=== PATIENT | male | born 1945 | race Caucasian/White ===

== ENCOUNTER 2024-07-02 07:45 | Outpatient (AMB) | payer MEDICARE, OTHER, SELFPAY ==
--- OUTSIDE RECORDS SUMMARY | 2024-07-02 07:49 | XMS_ITS | Clinical Summary ---
Author Organization [facility] ity Address [address] [place] [address] Care Team Providers Care Securities Dealer Name Role Phone Gail Albright NP Primary Care Provider [phone] Allergies No known active allergies Medications aspirin 81 mg EC tablet Take 1 Tablet by mouth daily. Active metoprolol succinate (TOPROL-XL) 100 mg 24 hr tablet TAKE 1 TABLET BY MOUTH EVERY DAY 90 tablet 1 5 Active rosuvastatin (CRESTOR) 40 mg tablet TAKE 1 TABLET BY MOUTH EVERY DAY 90 tablet 1 5 Active amLODIPine (NORVASC) 10 mg tablet TAKE 1 TABLET BY MOUTH EVERY DAY 90 tablet 1 5 Active valsartan-hydro CHLOROthiazide (DIOVAN-HCT) 160-25 mg per tablet TAKE 1 TABLET BY MOUTH EVERY DAY 90 tablet 1 5 Active valsartan-hydro CHLOROthiazide (DIOVAN-HCT) 160-25 mg per tablet Take 1 tablet by mouth 1 (one) time each day. 4 06/28/19 25 Discontinued Active Problems Problem Noted Date Diagnosed Date Prediabetes 02/01/2024 Impaired fasting glucose 01/18/2024 CAD (coronary artery disease) 07/17/2022 CKD (chronic kidney disease) 07/17/2022 GERD (gastroesophageal reflux disease) 3 PAD (peripheral artery disease) 07/17/2022 Spinal stenosis 07/17/2022 Right bundle branch block 07/17/2022 Essential hypertension, benign 04/25/2006 Immunizations Name Administration Dates Next Due Influenza trivalent, 0.5mL ( Fluad) 65yo and older 02/01/2024,01/26/2023,03/06/2022 Pneumococcal conjugate 20 va lent (Prevnar 20, PCV 20) 2mo and older 03/06/2022 Surgical History Surgery Date Site/Laterality Comments OTHER SURGICAL HISTORY PROCEDURE: MT SPINE DEVICE IMPLANT SURGERY CAROTID ENDARTERECTOMY PROCEDURE: HISTORICAL CAROTID ENDART Medical History Medical History Date Comments UPJ obstruction, congenital DX:U PJ obstruction, congenital; COMMENT: ureteres cleaned and reattached History of skin cancer DX:Histor y of skin cancer; COMMENT: r side near belly precancerous Hydronephrosis DX:Hydronephrosi s Family History Medical History Relation Name Comments Dementia Brother x2 1 living brother Other: Other Brother x2 1 broth er with Covid kidney failure, brother [id number] Obesity Daughter Colon cancer Father Diabetes Father Hyperlipidemia Mother Hypertension Mother Diabetes Sister x2 No Known Problems Son Relation Name Status Comments Brother x2 1 Daughter Alive Father Alive Mother Alive Sister x2 Alive Son Alive Social History Tobacco Use Types Packs/Day Years Used Date Smoking Tobacco: Never Smokeless Tobacco: Never Alcohol Use Standard Drinks/Week Comments Yes 1 (1 standard drink = 0.6 oz pur e alcohol) Sex and Gender Information Value Date Recorded Sex Assigned at Not on file Legal Sex Male 1:37 PM EST Gender Identity Not on file Sexual Orientation Not on file Obstetrics History Last Filed Vital Signs Vital Sign Reading Time Taken Comments Blood Pressure 109/70 08/01/2023 10:41 AM EDT A Pulse 76 08/01/2023 10:41 AM EDT Temperature - - Respiratory Rate - - Oxygen Saturation - - Inhaled Oxygen Concentration - - Weight 101 kg (222 lb 12.8 oz) 08/01/2023 10:41 AM EDT Height 177.8 cm (5' 10 ) 08/01/2023 10:41 AM EDT Body Mass Index 31.97 08/01/2023 10:41 AM EDT Plan of Treatment Upcoming Encounters Date Type Department Care Team (Late st Contact Info) Description 08/01/2024 3:00 PM EDT [facility] [address] [place] [address] Gail Albright NP [address] [place] [address] Health Maintenance Due Date Last Done Comments DTaP,Tdap,and Td Vaccines (1 - Tdap) 1964 Zoster Vaccines (1 of 2) 1995 RSV Immunization Patients 60 + Years Old (1 - 1-dose 75+ series) 2020 Depression Screening 02/28/2022 Falls Risk Assessment 02/28/2022 Hepatitis C Screening 02/28/2022 Social Influencers of Health Screening 02/28/2022 COVID-19 Vaccine (4 - 2023-2 5 season) 2023 01/24/2021, 06/12/2020, 2020 Hypertension/CHF/CAD Annual BMP Blood Test 01/21/2025 01/22/2024, 01/22/2024, 08/01/2023 Cholesterol Screening (Lipid Panel) 01/21/2029 01/22/2024, 01/22/2024, 08/01/2023 Pneumococcal Vaccine: 50+ Years Completed 03/06/2022 Influenza Vaccine Completed 02/01/2024, 01/26/2023, 03/06/2022 HIB Vaccines Aged Out No longer eligi ble based on patient's age to complete this topic HPV Vaccines Aged Out No longer eligi ble based on patient's age to complete this topic Hepatitis A Vaccines Aged Out No long er eligible based on patient's age to complete this topic Hepatitis B Vaccines Aged Out No long er eligible based on patient's age to complete this topic IPV Vaccines Aged Out No longer eligi ble based on patient's age to complete this topic MMR Vaccines Aged Out No longer eligi ble based on patient's age to complete this topic Meningococcal ACWY Vaccine Aged Out N o longer eligible based on patient's age to complete this topic Meningococcal B Vacine Aged Out No lo nger eligible based on patient's age to complete this topic RSV Immunization Patients Under 20 months Aged Out No longer eligible b ased on patient's age to complete this topic Varicella Vaccines Aged Out No longer eligible based on patient's age to complete this topic Procedures Procedure Name Priority Date/Time Associated Diagnosis Comments HM ANNUAL BMP BLOOD TEST Routine 01/22/2024 LIPID PANEL Routine 01/22/2024 from Last 3 Months or Most Recently Relevant to Health Maintenance Results * Annual BMP Blood Test (01/22/2024) Pathologist [facility] Annual BMP Blood Test ABSTRACTED Historical Provider HEALTH MAINTENANCE Final Result * (ABNORMAL) Lipid panel (01/22/2024) Pathologist [facility] LDL/HDL Ratio 3 0 - 4 Triglycerides 218(A) 0 - 150 mg/dL Cholesterol 135 0 - 200 mg/dL HDL 45 >=40 mg/dL LDL Cholesterol 47 0 - 100 mg/dL Blood Venous blood specimen / Unknown Historical Provider LAB BLOOD ORDERABLES Nuris l Result from Last 3 Months or Most Recently Relevant to Health Maintenance Care Teams Securities Dealer Relationship Specialty Start Date End Date Gail Albright NP [address] [place] [address] [place] [id number] PCP - General 04/21/22
--- NOTE | 2024-07-02 07:53 | MHC.OFFVIS ---
Intake Visit Reasons: Blister~ Rt index finger Intake Note: Patient referred by Bobby Mares PA-C @ [facility] for [facility] on Lt index finger. Present for over 1yr. Patient c/o: reports cyst was drained by stack supervisor 1yr ago but it grew back. Painful when pressed on. Fishing Tool Operator Required: No Accompanied by: Spouse Sherron Allergies No Known Allergies Allergy (Verified 07/02/24 07:55) HPI Comments Details: Patient presents with a family member. He presents here with a 1 year history of a cystic type lesion involving the tip of his left index finger. This was initially seen by Dermatology were this was treated with shave biopsy and ointment placement but the process recurred. Patient was states that cyst-like fluid was retrieved after the procedure. Patient was now presents here for further evaluation. He has never abscess lesions in the past. Denies any trauma to the area. Patient was told by the stack supervisor at this process extends into the joint of the DIP index finger. Chart was reviewed and patient evaluated Physical Exam Extrem Other: Patient was a roughly 1.5 x 1 cm cystic lesion involving the lateral dorsal aspect of his left index finger and proximity to the distal IP joint. Digit and hand are grossly neurovascularly intact. 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 Patient understands. Arrangements were made for this. Patient will otherwise follow-up with me p.r.n.. 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
== END 2024-07-02 08:08 | disposition home or self-care (01) ==
LOC: HO.HGS 07:46
PROVIDERS: PCP Internal Medicine; Visit Provider Surgery
DX: M67.442 Ganglion, left hand (principal)
CPT/HCPCS: 99204

== ENCOUNTER → 2024-07-02 07:45 | Outpatient (BNVA) | payer MEDICARE, OTHER, SELFPAY | PROVIDERS: PCP Internal Medicine; Visit Provider Surgery | DX: Z01.818 Encounter for other preprocedural examination (principal); M67.442 Ganglion, left hand | CPT/HCPCS: 99202 ==

== ENCOUNTER 2024-07-02 08:24 | Outpatient (AMB) | payer MEDICARE, OTHER, SELFPAY ==
--- NOTE | 2024-07-02 08:26 | MHC.OFFVIS ---
Intake Visit Reasons: TECHNICAL SERVICES LIBRARIAN-RT index finger mass Intake Note: Judd 79 yr old - hand dominant male presents today for a new patient evaluation for his left index finger. States he has a cyst on his index and has been presents for over 1 yr. Reports cyst was drained by quality control assessor 1yr ago but it grew back. States it is painful when pressed on. Patient would like to discuss aspiration vs surgical intervention. Allergies No Known Allergies Allergy (Verified 07/02/24 08:35) HPI HPI TECHNICAL SERVICES LIBRARIAN-RT index finger mass: Details: Judd is a 79 year old right hand dominant man, here with his , for a left index finger cyst. He complains of a mass on the dorsal aspect of his index finger, near his DIP joint. He says this has been present for over a year. He says this was shaved a year ago by his quality control assessor, but has since returned. He has difficulty hearing, and forgot his hearing aides today. He was active in participating in his appointment. Review of Systems Const All systems reviewed & are unremarkable except as noted in HPI and below Physical Exam Const General: cooperative, healthy appearing and no acute distress Orientation/consciousness: patient oriented x3 HEENT Head: Yes normocephalic and Yes atraumatic Eyes EOM: EOMs intact bilaterally Resp Effort & Inspection: normal respiratory effort and able to speak in complete sentences Cardio Jugular venous distension: no JVD Skin General skin exam: turgor normal Rashes: no rashes Neuro General: patient oriented x3 Extrem Other: Evaluation of Left Upper Extremity: The patient is alert, oriented, and in no acute distress Neuro: Median, Ulnar, Radial nerves motor and sensory intact and sensation is normal to the tips of all digits Vascular: Cap refill brisk ROM: He can make a fist and extend all his digits Skin: No lacerations or abrasions. General: No Ecchymosis. No Erythema or evidence of infection. There is a fluid filled mass on the dorsal lateral aspect of the index finger, just distal to the DIP joint. This measures ~6mm in diameter and is consistent with a mucous cyst. 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 Left index finger mucous cyst Dorsal lateral aspect, just distal to the DIP joint Measuring ~6mm in diameter I educated him and his about this condition I discussed operative and non-operative treatment options The patient would like to proceed with surgery The risks and benefits of operative treatment were discussed with the patient and the patient wishes to proceed with surgery. These risks include, but are not limited to risk of damage to blood vessels, nerves, tendons, infection, recurrence, incomplete relief of preoperative symptoms, persistent pain, possible need for further surgery and the risks associated with regional blocks and anesthesia. The plan is to take the patient to the operating room sometime in the next few weeks for the following procedures: 1. Left index finger mucous cyst excision, under local All of the preoperative paperwork including the consent was reviewed today. All the patient's questions were answered. The patient understands that they will be contacted by our oral and maxillofacial surgery resident soon to schedule this procedure He denies Diabetes, blood thinners, asthma, heart, lung, kidney issues Scribed for Angela Blanco MD by Brett London, medical appliance maker, on 07/02/24 at 8:40 AM, EST. 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
--- OUTSIDE RECORDS SUMMARY | 2024-07-02 08:37 | XMS_ITS | Clinical Summary ---
Author Organization [facility] ity Address [address] [place] [address] Care Team Providers Care Bindery Operator Name Role Phone Gail Albright NP Primary Care Provider [phone] Allergies No known active allergies Medications aspirin [...] Date Site/Laterality Comments OTHER SURGICAL HISTORY PROCEDURE: MS SPINE DEVICE IMPLANT SURGERY CAROTID ENDARTERECTOMY PROCEDURE: [...] broth er with Covid kidney failure, brother [id number] Obesity Daughter Colon cancer Father Diabetes Father [...] PM EDT [facility] [address] [place] [address] Gail Albright NP [address] [place] [address] Health Maintenance Due Date Last Done Comments DTaP,Tdap,and Td Vaccines (1 - Tdap) 1964 Zoster Vaccines (1 of 2) 1995 RSV Immunization Adult Patients (1 - 1-dose 75+ series) 2020 Depression Screening 02/28/2022 Falls Risk Assessment 02/28/2022 Hepatitis C Screening 02/28/2022 Social Influencers of Health Screening 02/28/2022 COVID-19 Vaccine ( - 2023-2 5 season) 2023 01/24/2021, 06/12/2020, [...] Procedure Name Priority Date/Time Associated Diagnosis Comments ANNUAL BMP BLOOD TEST Routine 01/22/2024 LIPID PANEL Routine 01/22/2024 from Last 3 Months or Most Recently Relevant to Health Maintenance Results * Annual BMP Blood Test (01/22/2024) Annual BMP Blood Test ABSTRACTED Historical Provider HEALTH MAINTENANCE Final Result * (ABNORMAL) Lipid panel (01/22/2024) LDL/HDL Ratio 3 0 - 4 Triglycerides 218(A) 0 - 150 mg/dL Cholesterol 135 0 - 200 mg/dL HDL 45 >=40 mg/dL LDL Cholesterol 47 0 - 100 mg/dL Blood Venous blood specimen / Unknown Historical Provider LAB BLOOD ORDERABLES Nuris l Result from Last 3 Months or Most Recently Relevant to Health Maintenance Care Teams Bindery Operator Relationship Specialty Start Date End Date Gail Albright NP [address] [place] [address] [place] [id number] PCP - General 04/21/22
== END 2024-07-02 08:55 | disposition home or self-care (01) ==
PROVIDERS: PCP Internal Medicine; Visit Provider Orthopaedic Surgery
DX: M67.442 Ganglion, left hand (principal)
CPT/HCPCS: 99204

== ENCOUNTER 2024-07-24 11:33 | Day surgery (SDC) | payer MEDICARE, OTHER, SELFPAY ==
--- OUTSIDE RECORDS SUMMARY | 2024-07-02 15:47 | XMS_ITS | Clinical Summary ---
Author Organization [facility] ity Address [address] [place] [address] Care Team Providers Care Director Of Hotel Operations Name Role Phone Gail Albright NP Primary Care Provider [phone] Allergies No known active allergies Medications aspirin [...] broth er with Covid kidney failure, brother [id number] Obesity Daughter Colon cancer Father Diabetes Father [...] PM EDT [facility] [address] [place] [address] Gail Albright NP [address] [place] [address] Health Maintenance Due Date Last Done Comments [...] Recently Relevant to Health Maintenance Care Teams Director Of Hotel Operations Relationship Specialty Start Date End Date Gail Albright NP [address] [place] [address] [place] [address] PCP - General 04/21/22
[2024-07-24 12:00] VITALS: BP 150/75; PULSE 66; RESP 16; TEMP 36.4; O2SAT 96; BMI 31.6
--- NOTE | 2024-07-24 12:50 | MHC.SHP ---
Pre-Procedural Eval Section A - 24 Hr Update-Section A only Date of Service: 07/24/24 The patient is an INPATIENT: No Changes since office visit: No Cold of Flu in the past 2 weeks, No New Medical Problems, No Changes in Medication and No Patient answered all questions The patient has been examined within 24 hours of the surgical procedure. The History & Physical has been completed within 30 days and I have reviewed it.: Yes Section B - Complete if H&P > 30 days Chief Complaint: Ganglion, left hand Allergies: Allergies Allergy/AdvReac Type Severity Reaction Status Date / Time No Known Allergies Allergy Verified 07/24/24 11:58 Plan Diagnosis/Plan: Unchanged I have reviewed the history and physical and performed a pertinent physical examination on my patient. No changes have occurred unless specified. Time Spent With Patient Time: Total time managing care of this patient today ____ minutes.
--- NOTE | 2024-07-24 12:51 | P.OP_ITS ---
Operative Note Operative Note Date of Service: 07/24/24 Narrative: Operative Note Preop diagnosis: 1. 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 same Procedure: 1. Left index finger mucous cyst excision Surgeon: Angela Blanco MD Home Child Care Provider: Faustino LAU Anesthesia: Digital block using 1% lidocaine with epinephrine Findings: Solid soft tissue mass measuring approximately 4-5 mm in diameter by approximately 3 mm in thickness. This is possibly a deflated mucous cyst. We will send it for histopathology EBL: Less than 5 mL Tourniquet time: None Specimens: Left index finger mass Complications: None Disposition: Brought to recovery room in stable condition Plan: Follow-up for 7-10 days for wound check and suture removal, check pathology Indications: The patient is 79 years old, with left index finger D IP joint osteoarthritis and a mucous cyst that has been unresponsive to nonoperative management. The risks and benefits of operative treatment including but not limited to risk of damage to blood vessels, nerves, tendons, infection, persistent pain, persistent symptoms, recurrence or possible need for additional surgery were discussed with the patient and the patient wishes to proceed with surgery. Procedure: Once consent was obtained a digital block was performed in the preop area using a combination of 1% lidocaine with epinephrine. The patient was then brought back to the operating suite and placed on the operative table in supine position. A tourniquet was applied to the proximal aspect of the left upper extremity and the limb was prepped and draped in a standard surgical fashion. Once assured that we had a good block, an L-shaped incision was made over the dorsal aspect of the left index finger distal phalanx. The incision was made through the skin to the subcutaneous tissues using a #15 blade. Careful dissection was made down to the level of the mucous cyst and extensor mechanism using iris scissors. A carefully dissected the skin from the superficial aspect of the soft tissue mass/cyst. The skin was adherent to the mass. I then dissected the mass which measured about 4-5 mm in diameter by 3 mm in thickness from the underlying tendon and IP joint. He gives a history of it having drain clear viscous fluid but we did not see any clear viscous fluid today. The mass was removed and placed on the back table to be sent for histopathology. Once satisfied, the wound was copiously irrigated with normal saline and hemostasis was obtained with a brief period of local pressure. The skin edges were reapproximated with some 5.0 Prolene suture material and a sterile dressing was applied. The patient appears to have tolerated the procedure well and with no complications. All digits were well vascularized at the conclusion of the case.
[2024-07-24 14:11] VITALS: BP 142/73; PULSE 75; RESP 15; O2SAT 94
== END 2024-07-24 14:12 | disposition home or self-care (01) ==
PROVIDERS: PCP Nurse Practitioner Primary Care; Visit Provider Orthopaedic Surgery
PROC: (CPT 26160; principal; 2024-07-24 13:20)
DX: M67.442 Ganglion, left hand (principal); M19.042 Primary osteoarthritis, left hand
CPT/HCPCS: 26160; 88304; J0171; J2003

== ENCOUNTER → 2024-07-24 11:33 | Outpatient (BNV) | payer MEDICARE, OTHER, SELFPAY | PROVIDERS: PCP Nurse Practitioner Primary Care; Visit Provider Orthopaedic Surgery | DX: M71.342 Other bursal cyst, left hand (principal) | CPT/HCPCS: 26160 ==

== ENCOUNTER 2024-08-08 08:25 | Outpatient (AMB) | payer MEDICARE, OTHER, SELFPAY ==
[2024-08-08 08:30] VITALS: BMI 31.6
--- NOTE | 2024-08-08 08:30 | A.OFFVIS_ITS ---
Vital Signs 08/08/24 08:30 Height 5 ft 10 in Weight 220 lb BMI 31.6 Intake Visit Reasons: PO LT IF mucous cyst excision 07/24/24 AR Intake Note: Judd is a 79 year old right hand dominant male who presents today post operatively s/p Left index finger mucous cyst excision by Dr Angela Blanco DOS: 07/24/24. Patient reports that he is doing very well with no concerns. Sutures removed and steri strips applied. The incision area looks healed but there is a raw area to the right of incision. Allergies No Known Allergies Allergy (Verified 08/08/24 08:30) HPI HPI PO LT IF mucous cyst excision 07/24/24 AR: Details: Judd is a 79 year old right hand dominant male who presents today post operatively s/p Left index finger mucous cyst excision by Dr Angela Blanco DOS: 07/24/24. Patient reports that he is doing very well with no concerns. Sutures removed and steri strips applied. The incision area looks healed but there is a raw area to the right of incision. [facility] Medical History (Updated 07/23/24 @ 10:03 by Karen Aranda RN) Elevated cholesterol HTN (hypertension) Surgical History (Updated 07/24/24 @ 11:58 by Sondra Mojica RN) Personal history of spine surgery History of skin surgery H/O carotid endarterectomy Review of Systems Const All systems reviewed & are unremarkable except as noted in HPI and below Physical Exam Vital Signs: BMI result Body Mass Index 31.6 Extrem Other: Patient is alert, oriented, and in no acute distress. Neuro: Normal sensation of the tips of all digits of the left hand at this time Vascular: Cap refill brisk Pain: No tenderness to palpation about the incision site on dorsal and distal aspect of the left index finger No pain with range of motion of the left hand ROM: Patient is able to make a closed fist and extend all digits of the left hand fully and without difficulty Skin: Well approximated and well healing incision site noted on the dorsal aspect of the distal left index finger There is a small area of slight redness, however this appears to be more consistent with new skin growth than any infectious origin General: No ecchymosis, erythema, or evidence of infection. 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
--- OUTSIDE RECORDS SUMMARY | 2024-08-08 08:38 | XMS_ITS | Clinical Summary ---
Author Organization [place] [address] [facility] Address [address] [place] [address] Phone Care Team Providers Care Aoc Director Combat Plans Officer Name Role Phone Gail Albright NP Primary Care Provider [phone] Allergies No known active allergies Medications aspirin [...] EVERY DAY 90 tablet 1 5 Active multivitamin (multivitamin-i philippe-minerals) tablet Take 1 tablet by mouth daily. Active nitroglycerin (Nitrostat) 0.[address] 1 tablet (0.3 mg total) under the tongue every 5 (five) minutes if needed for chest pain. Max dose 0.6mg per day. 28 tablet 5 Active nitroglycerin (NITROSTAT SL) Place 0.3 mg under the tongue if needed. 2 08/02/19 25 Discontinu ed(Reorder ) nitroglycerin (Nitrostat) 0.[address] 1 tablet (0.3 mg total) under the tongue if needed for chest pain. 28 tablet 5 08/02/19 25 Discontinu ed(Reorder ) Active Problems Problem Noted Date Diagnosed Date Prediabetes 02/01/2024 Assessment & Plan (08/01/2024 3:19 PM EDT): Impaired fasting glucose 01/18/2024 Assessment & Plan (08/01/2024 3:19 PM EDT): Controlled with diet. Continue low CHO diet and advised weight loss. CAD (coronary artery disease) 07/17/2022 Stage 3a chronic kidney disease ([facility] V24, [facility] V28) 07/17/2022 Assessment & Plan (08/01/2024 3:19 PM EDT): CKD: stable, check BMP, avoid nephrotoxins. GERD (gastroesophageal reflux disease) PAD (peripheral artery disease) ([facility] V24) Spinal stenosis 07/17/2022 Right bundle branch block 07/17/2022 Essential hypertension, benign 04/25/2006 Assessment & Plan (08/01/2024 3:19 PM EDT): HTN: controlled. Continue current meds. Reviewed lifestyle mods to help manage HTN Including low sodium diet and exercise and optimal weight control. Check BMP today. Encounters Date Type Department Care Team Description 08/01/2024 3:00 PM EDT Office Visit Internal Medicine - [address] [phone] Gail Albright NP Adult general medical examination (Primary Dx); Essential hypertension, benign; Impaired fasting glucose; Prediabetes; Stage 3a chronic kidney disease ([facility] V24, [facility] V28) 07/30/2024 9:00 AM EDT Lab Draw Station - [address] [address] Screening for deficiency anemia; Screening for metabolic disorder; Encounter for lipid screening for cardiovascular disease; Screening for prostate cancer; Prediabetes 07/29/2024 Telephone Internal Medicine - [address] [phone] Gail Albright NP orders from Last 3 Months Immunizations Name Administration Dates Next Due Influenza trivalent, 0.5mL ( Fluad) 65yo and older 02/01/2024,01/26/2023,03/06/2022 Pneumococcal conjugate 20 va lent (Prevnar 20, PCV 20) 2mo and older 03/06/2022 Surgical History Surgery Date Site/Laterality Comments OTHER SURGICAL HISTORY PROCEDURE: HI SPINE DEVICE IMPLANT SURGERY CAROTID ENDARTERECTOMY PROCEDURE: HISTORICAL CAROTID ENDART Medical History Medical History Date Comments UPJ obstruction, congenital DX:U PJ obstruction, congenital; COMMENT: ureteres cleaned and reattached History of skin cancer DX:Histor y of skin cancer; COMMENT: r side near belly precancerous Hydronephrosis DX:Hydronephrosi s Ganglion cyst Family History Medical History Relation Name Comments Dementia Brother x2 1 living brother Other: Other Brother x2 1 broth er with Covid kidney failure, brother [id number] Obesity Daughter Colon cancer Father Diabetes Father Hyperlipidemia Mother Hypertension Mother Diabetes Sister x2 No Known Problems Son Relation Name Status Comments Brother x2 1 Daughter Alive Father Alive Mother Alive Sister x2 Alive Son Alive Social History Tobacco Use Types Packs/Day Years Used Date Smoking Tobacco: Never Smokeless Tobacco: Never Tobacco Cessation:Counseling Given: Not Answered Alcohol Use Standard Drinks/Week Comments Yes 1 (1 standard drink = 0.6 oz pur e alcohol) Sex and Gender Information Value Date Recorded Sex Assigned at Not on file Legal Sex Male 1:37 PM EST Gender Identity Not on file Sexual Orientation Not on file Obstetrics History Last Filed Vital Signs Vital Sign Reading Time Taken Comments Blood Pressure 129/71 08/01/2024 2:55 PM EDT A Pulse 65 08/01/2024 2:55 PM EDT Temperature - - Respiratory Rate - - Oxygen Saturation - - Inhaled Oxygen Concentration - - Weight 96.7 kg (213 lb 3.2 oz) 08/01/2024 2:55 P M EDT Height 177.8 cm (5' 10 ) 08/01/2024 2:55 PM EDT Body Mass Index 30.59 08/01/2024 2:55 PM EDT Plan of Treatment Upcoming Encounters Date Type Department Care Team (Late st Contact Info) Description 02/02/2025 10:15 AM EST Office Visit Internal Medicine - [facility] [address] [facility] [place] [phone] Gail Albright, HIRAM [address] [facility] [place] [address] Health Maintenance Due Date Last Done Comments DTaP,Tdap,and Td Vaccines (1 - Tdap) 1964 Zoster Vaccines (1 of 2) 1995 Social Influencers of Health Screening 02/28/2022 Hypertension/CHF/CAD Annual BMP Blood Test 07/30/2025 07/30/2024, 01/22/2024, 01/22/2024, Additional history exists Depression Screening 08/01/2025 08/01/2024 Falls Risk Assessment 08/01/2025 08/01/2024 Medicare Annual Wellness Visit 08/01/2025 08/01/2024 Cholesterol Screening (Lipid Panel) 07/30/2029 07/30/2024, 01/22/2024, 01/22/2024, Additional history exists COVID-19 Vaccine Discontinued 01/24/2021, , 2020 Pneumococcal Vaccine: 50+ Years Completed 03/06/2022, 01/06/2012 Influenza Vaccine Completed 02/01/2024, , 03/06/2022, Additional history exists HIB Vaccines Aged Out No longer eligi [...] patient's age to complete this topic Hepatitis C Screening Discontinued IPV Vaccines Aged Out No longer eligi ble based on patient's age to complete this topic MMR Vaccines Aged Out No longer eligi ble based on patient's age to complete this topic Meningococcal ACWY Vaccine Aged Out N o longer eligible based on patient's age to complete this topic Meningococcal B Vaccine Aged Out No l onger eligible based on patient's age to complete this topic RSV Immunization Adult Patients Discontinued RSV Immunization Patients Under 20 months Aged Out No longer eligible based on patient's age to complete this topic Varicella Vaccines Aged Out No longer eligible based on patient's age to complete this topic Procedures Procedure Name Priority Date/Time Associated Diagnosis Comments HEMOGLOBIN A1C Routine 07/30/2024 8:58 AM EDT Prediabetes PROSTATE SPECIFIC ANTIGEN SCREEN Routine 07/30/2024 8:58 AM EDT Screening for prostate cancer LIPID PANEL WITH REFLEX TO DIRECT LDL Routine 07/30/2024 8:58 AM EDT Screening for metabolic disorder Encounter for lipid screening for cardiovascular disease COMPREHENSIVE METABOLIC PANEL Routine 07/30/2024 8:58 AM EDT Screening for metabolic disorder COMPLETE BLOOD COUNT Routine 07/30/2024 8:58 AM EDT Screening for deficiency anemia from Last 3 Months Results * Prostate specific antigen screen (07/30/2024 8:58 AM EDT) PSA 1.04 0.00 - 4.00 ng/mL LAB CHEMISTRY METHOD 07/30/2024 11:23 PM EDT [facility] Blood Venous blood specimen / Unknown Venipuncture / Unknown 07/30/2024 8:58 AM EDT 07/30/2024 8:59 AM EDT Narrative [facility] - 07/30/2024 11:23 PM EDT The Siemens Advia Centaur Chemiluminescent Immunoassay is used. Results obtained with different assay methods or kits cannot be used interchangeably. Results cannot be interpreted as absolute evidence of the presence or absence of malignant disease. us Gail Albright NP LAB BLOOD ORDERABLES Final Resu lt [facility] [address] [place] [address], * (ABNORMAL) Lipid panel with reflex to direct LDL (07/30/2024 8:58 AM EDT) Cholesterol 133 0 - 200 mg/dL LAB CHEMISTRY METHOD 07/30/2024 6:40 PM EDT [facility] Triglycerides 250(H) 0 - 150 mg/dL LAB CHEMISTRY METHOD 07/30/2024 6:40 PM EDT [facility] HDL 35(L) >=40 mg/dL LAB CHEMISTRY METHOD 07/30/2024 6:40 PM EDT [facility] LDL Calculated 48 0 - 100 mg/dL LAB CHEMISTRY METHOD 07/30/2024 6:40 PM EDT [facility] VLDL Cholesterol Kervin 50 mg/dL LAB CHEMISTRY METHOD 07/30/2024 6:40 PM EDT [facility] Non HDL Chol. (LDL+VLDL) 98 <145 mg/dL LAB CHEMISTRY METHOD 07/30/2024 6:40 PM EDT [facility] Chol/HDL Ratio 3.8 0.0 - 4.4 LAB CHEMISTRY METHOD 07/30/2024 6:40 PM EDT [facility] Blood Venous blood specimen / Unknown Venipuncture / Unknown 07/30/2024 8:58 AM EDT 07/30/2024 8:59 AM EDT us Gail Albright [employer] LAB BLOOD ORDERABLES Final Resu lt [facility] [address] [place] [address], * (ABNORMAL) Complete blood count (07/30/2024 8:58 AM EDT) [facility] WBC 7.2 4.8 - 10.8 K/mcL LAB HEMETOLOGY METHOD 07/30/2024 12:18 PM EDT [facility] RBC 5.60(H) 4.50 - 5.50 M/mcL LAB HEMETOLOGY METHOD 07/30/2024 12:18 PM EDT [facility] Hemoglobin 15.6 13.5 - 17.5 g/dL LAB HEMETOLOGY METHOD 07/30/2024 12:18 PM EDT [facility] Hematocrit 48.4 42.0 - 54.0 % LAB HEMETOLOGY METHOD 07/30/2024 12:18 PM EDT [facility] MCV 86.6 79.0 - 98.0 FL LAB HEMETOLOGY METHOD 07/30/2024 12:18 PM EDT [facility] MCH 27.9 27.0 - 32.0 pcg LAB HEMETOLOGY METHOD 07/30/2024 12:18 PM EDT [facility] MCHC 32.2 32.0 - 37.0 g/dL LAB HEMETOLOGY METHOD 07/30/2024 12:18 PM EDT [facility] RDW 14.9 11.0 - 15.0 % LAB HEMETOLOGY METHOD 07/30/2024 12:18 PM EDT [facility] Platelets 232 130 - 400 K/mcL LAB HEMETOLOGY METHOD 07/30/2024 12:18 PM EDT [facility] MPV 9.6 7.0 - 11.0 FL LAB HEMETOLOGY METHOD 07/30/2024 12:18 PM EDT [facility] NRBC 0.0 <1.0 % LAB HEMETOLOGY METHOD 07/30/2024 12:18 PM EDT [facility] NRBC Absolute 0.00 <0.10 K/mcL LAB HEMETOLOGY METHOD 07/30/2024 12:18 PM EDT [facility] Blood Venous blood specimen / Unknown Venipuncture / Unknown 07/30/2024 8:58 AM EDT 07/30/2024 8:59 AM EDT us Gail Albright NP LAB BLOOD ORDERABLES Final Resu lt [facility] [address] [place] [address], [place] [phone] * Hemoglobin A1c (07/30/2024 8:58 AM EDT) Pathologist [facility] [place] Hemoglobin A1C 6.2 <6.5 % LAB CHEMISTRY METHOD 07/30/2024 1:49 PM EDT [facility] Mean Bld Glu Estim. 131 mg/dL LAB CHEMISTRY METHOD 07/30/2024 1:49 PM EDT [facility] Blood Venous blood specimen / Unknown Venipuncture / Unknown 07/30/2024 8:58 AM EDT 07/30/2024 8:59 AM EDT Gail Albright [employer] LAB BLOOD ORDERABLES Final Resu lt [facility] [address] [place] [address], [place] [phone] * (ABNORMAL) Comprehensive metabolic panel (07/30/2024 8:58 AM EDT) [facility] Sodium 140 133 - 145 mmol/L LAB CHEMISTRY METHOD 07/30/2024 6:40 PM [facility] Potassium 4.0 3.5 - 5.5 mmol/L LAB CHEMISTRY METHOD 07/30/2024 6:40 PM [facility] Chloride 105 96 - 110 mmol/L LAB CHEMISTRY METHOD 07/30/2024 6:40 PM T [facility] CO2 27 21 - 32 mmol/L LAB CHEMISTRY METHOD 07/30/2024 6:40 PM [facility] Anion Gap 8 3 - 11 LAB CHEMISTRY METHOD 07/30/2024 6:40 PM [facility] Glucose 102(H) 70 - 100 mg/dL LAB CHEMISTRY METHOD 07/30/2024 6:40 PM [facility] BUN 25 5 - 25 mg/dL LAB CHEMISTRY METHOD 07/30/2024 6:40 PM [facility] Creatinine 1.48(H) 0.70 - 1.30 mg/dL LAB CHEMISTRY METHOD 07/30/2024 6:40 PM [facility] eGFR 48(L) >=60 mL/min/1. 73m2 LAB CHEMISTRY METHOD 07/30/2024 6:40 PM [facility] Comment:Calculation based on the??Chronic Kidney Disease Epidemiology Collaboration (CKD-EPI) equation refit??without adjustment for race. BUN/Creatinine Ratio 16.9 LAB CHEMISTRY METHOD 07/30/2024 6:40 PM [facility] Calcium 9.0 8.5 - 10.5 mg/dL LAB CHEMISTRY METHOD 07/30/2024 6:40 PM [facility] AST (SGOT) 32 10 - 42 unit/L LAB CHEMISTRY METHOD 07/30/2024 6:40 PM [facility] ALT (SGPT) 38 10 - 60 unit/L LAB CHEMISTRY METHOD 07/30/2024 6:40 PM [facility] Alkaline Phosphatase 54 42 - 121 unit/L LAB CHEMISTRY METHOD 07/30/2024 6:40 PM [facility] Total Protein 7.1 6.0 - 8.0 g/dL LAB CHEMISTRY METHOD 07/30/2024 6:40 PM [facility] Albumin 3.8 3.2 - 5.0 g/dL LAB CHEMISTRY METHOD 07/30/2024 6:40 PM [facility] Total Bilirubin 0.8 0.0 - 1.4 mg/dL LAB CHEMISTRY METHOD 07/30/2024 6:40 PM [facility] Blood Venous blood specimen / Unknown Venipuncture / Unknown 07/30/2024 8:58 AM EDT 07/30/2024 8:59 AM EDT Gail Natalee [employer] LAB BLOOD ORDERABLES Final Resu lt [facility] [place] [facility] [address] [place] [address], from Last 3 Months Insurance MEDICARE [facility] Care Teams Aoc Director Combat Plans Officer Relationship Specialty Start Date End Date Gail Albright NP [address] [facility] [place] [address] PCP - General 04/21/22
== END 2024-08-08 08:55 | disposition home or self-care (01) ==
LOC: HO.HOS 08:26
PROVIDERS: PCP Internal Medicine
DX: M67.442 Ganglion, left hand (principal)
CPT/HCPCS: 99024

== ENCOUNTER → 2024-08-08 08:25 | Outpatient (BNVA) | payer MEDICARE, OTHER, SELFPAY | PROVIDERS: PCP Internal Medicine | DX: Z09 Encounter for follow-up examination after completed treatment for conditions other than malignant neoplasm (principal); Z87.39 Personal history of other diseases of the musculoskeletal system and connective tissue; Z98.890 Other specified postprocedural states | CPT/HCPCS: 99212 ==